=== PATIENT | female | born 1950 | race Native Hawaiian/Other Pacific Islander ===

== ENCOUNTER 2022-10-16 10:44 | Outpatient (CLI) | payer OTHER, BC ==
[~2022-10-16] VITALS: Ht 165.1 cm; Wt 68.0 kg
[2022-10-16 10:55] VITALS: BP 150/76; TEMP 97.3
== END 2022-10-16 21:03 | disposition home or self-care (01) ==
LOC: INF 10:44
PROVIDERS: ATTEND Internal Medicine Endocrinology, Diabetes & Metabolism
DX: N39.0 Urinary tract infection, site not specified (principal); B96.1 Klebsiella pneumoniae [K. pneumoniae] as the cause of diseases classified elsewhere
CPT/HCPCS: 96365; J1335

== ENCOUNTER 2022-10-17 10:48 | Outpatient (CLI) | payer OTHER, BC ==
[~2022-10-17] VITALS: Ht 165.1 cm; Wt 68.0 kg
[2022-10-17 10:53] VITALS: BP 133/64; TEMP 98.4
== END 2022-10-17 19:49 | disposition home or self-care (01) ==
LOC: INF 10:48
PROVIDERS: ATTEND Internal Medicine Endocrinology, Diabetes & Metabolism
DX: N39.0 Urinary tract infection, site not specified (principal); B96.1 Klebsiella pneumoniae [K. pneumoniae] as the cause of diseases classified elsewhere
CPT/HCPCS: 96365; J1335

== ENCOUNTER 2022-10-18 10:44 | Outpatient (CLI) | payer OTHER, BC ==
[~2022-10-18] VITALS: Ht 160 cm; Wt 97.2 kg
[2022-10-18 10:45] VITALS: BP 131/70; TEMP 97.8
== END 2022-10-18 19:41 | disposition home or self-care (01) ==
LOC: INF 10:44
PROVIDERS: ATTEND Internal Medicine
DX: N39.0 Urinary tract infection, site not specified (principal); B96.1 Klebsiella pneumoniae [K. pneumoniae] as the cause of diseases classified elsewhere
CPT/HCPCS: 96365; J1335

== ENCOUNTER 2022-10-19 10:37 | Outpatient (CLI) | payer OTHER, BC ==
[~2022-10-19] VITALS: Ht 30.5 cm; Wt 0.5 kg
[2022-10-19 10:43] VITALS: BP 142/82; TEMP 98.2
== END 2022-10-19 19:30 | disposition home or self-care (01) ==
LOC: INF 10:37
PROVIDERS: ATTEND Internal Medicine
DX: N39.0 Urinary tract infection, site not specified (principal); B96.1 Klebsiella pneumoniae [K. pneumoniae] as the cause of diseases classified elsewhere
CPT/HCPCS: 96365; J1335

== ENCOUNTER 2022-10-20 10:39 | Outpatient (CLI) | payer OTHER, BC ==
[~2022-10-20] VITALS: Ht 30.5 cm; Wt 0.5 kg
[2022-10-20 10:40] VITALS: BP 127/70; TEMP 98
== END 2022-10-20 18:59 | disposition home or self-care (01) ==
LOC: INF 10:39
PROVIDERS: ATTEND Internal Medicine
DX: N39.0 Urinary tract infection, site not specified (principal); B96.1 Klebsiella pneumoniae [K. pneumoniae] as the cause of diseases classified elsewhere
CPT/HCPCS: 96365; 96375; J1335; J1642

== ENCOUNTER 2022-10-22 10:58 | Outpatient (CLI) | payer OTHER, BC ==
[~2022-10-22] VITALS: Ht 160 cm; Wt 97.1 kg
[2022-10-22 11:02] VITALS: BP 110/72; TEMP 98.2
== END 2022-10-22 20:23 | disposition home or self-care (01) ==
LOC: INF 10:58
PROVIDERS: ATTEND Internal Medicine
DX: N39.0 Urinary tract infection, site not specified (principal); B96.1 Klebsiella pneumoniae [K. pneumoniae] as the cause of diseases classified elsewhere
CPT/HCPCS: 96365; J1335